=== PATIENT | male | born 1955 | race Caucasian/White ===

== ENCOUNTER → 2022-05-30 | Emergency (ER) | payer BC, OTHER ==
[~2022-05-30] VITALS: Ht 177.8 cm; Wt 113.4 kg
--- NOTE | 2022-05-30 14:29 | NUR ---
DR MONGE IN CHAIR TO SEE PT.
[2022-05-30 16:06] VITALS: BP_SYST 149
--- NOTE | 2022-05-30 17:00 | NUR ---
CRUTCHES GIVEN BY PRIMARY RN-MELISSA
--- NOTE | 2022-05-30 17:38 | NUR ---
Patient given written and verbal discharge instructions and verbalizes understanding. ER MD discussed with patient the results and treatment provided. Patient in stable condition. ID arm band removed. Patient educated on pain management and to follow up with PMD. Pain Scale [0]. Opportunity for questions provided and answered.
== END | disposition home or self-care (01) ==
LOC: SED 13:41
DX: M79.671 Pain in right foot (principal); Z91.048 Other nonmedicinal substance allergy status; Z79.899 Other long term (current) drug therapy
CPT/HCPCS: 99283